=== PATIENT | female | born 1995 | race Caucasian/White ===

== ENCOUNTER 2018-10-29 21:42 | Inpatient (IN) | payer BC ==
[~2018-10-29] VITALS: Ht 180.3 cm; Wt 77.1 kg
[2018-10-29 21:50] VITALS: BP 144/86
[2018-10-29 22:34] LABS: URINE BILIRUBIN NEGATIVE (Negative); URINE BLOOD 1+ (Negative); URINE CLARITY CLEAR; URINE COLOR YELLOW; URINE GLUCOSE-RANDOM* NEGATIVE (Negative); URINE KETONES 1+ (Negative); URINE LEUKOCYTES-REFLEX NEGATIVE (Negative); URINE NITRITE-REFLEX NEGATIVE (Negative); URINE PROTEIN (DIPSTICK) NEGATIVE (Negative); URINE UROBILINOGEN 0.2 E.U./dl (0.2-1.0)
[2018-10-29 22:35] LABS: ABSOLUTE NEUTROPHILS 6.8 thou/uL (1.4-8.2); EOSINOPHILS 2.4 % (0.0-3.0); HEMATOCRIT 38.1 % (37.0-47.0); LYMPHOCYTES 28.2 % (24.0-44.0); MCHC 34.2 g/dL (28.0-37.0); MCV 84.7 fL (80.0-100.0); MONOCYTES 8.9 % (1.0-8.0); PLATELET COUNT 302 thou/uL (150-400); POLYS 59.5 % (36.0-66.0); RDW 12.7 % (10.5-14.5); WBC 11.4 thou/uL (4.0-11.0)
[2018-10-29 22:46] LABS: CALCIUM 8.8 mg/dL (8.5-10.1); CREATININE 0.6 mg/dL (0.6-1.0); POTASSIUM 3.4 mmol/L (3.5-5.1)
[2018-10-29 22:46] LABS: BACTERIA-REFLEX None Seen /HPF (None Seen); CASTS None Seen /LPF (None Seen); CRYSTALS None Seen /LPF (None Seen); MUCUS None Seen strn/LPF (None Seen); SQUAMOUS None Seen /LPF (0-3); URINE RBC None Seen /HPF (0-2); URINE WBC-REFLEX None Seen /HPF (0-5)
[2018-10-30] VITALS (8 sets, daily range): BP systolic 119–137; BP diastolic 78–90
[2018-10-30] MEDS ORDERED: NF (02:11)
--- NOTE | 2018-10-30 04:22 | NUR ---
Pt arrived on unit at 0240 accompanied by fam/friends on a cart. A/OX4,oriented to the room and call light system.VSS. C/o mid abd pain especially with movement,medicated prior to unit arrival and the pain is bearable at 5/10. Up and oksana,educated on fall safety and agreeable to call for help as needed. IVF infusing via Right hand without any problems. Pt remains NPO for possible surgery today.Resting quietly at this time with no distress noted,call light/personal items within reach.
--- NOTE | 2018-10-30 16:02 | NUR ---
PT A&OX4, VSS, PAIN IN ABDOMEN. PAIN MANAGED WITH MORPHINE. PT HAD APPENDECTOMY TODAY. POST VITALS TAKEN, NO SIGNS OF DISTRESS. FAMILY AT BEDSIDE. PT TOLERATING CLEAR LIQUID AT THIS TIME, DENIES N/V/D. PT UP TO BATHROOM STAND
[2018-10-31 03:38] VITALS: BP 110/71
--- NOTE | 2018-10-31 03:40 | NUR ---
PT HAVING LEFT SHOULDER PAIN FROM GAS, ENC. TO GET UP AND AMBULATE, VERBALIZING PASSING GAS, STARTED ON NORCO TONIGHT, FAMILY STAYED ALL NIGHT, SCOPALAMINE PATCH BEHIND RIGHT EAR INTACT, NO NAUSEA NOTED, LAP SITES WELL APPROXIMATED, PT IS UP ADLIB, GAIT STEADY, MONITORED.
[2018-10-31 07:32] VITALS: BP 118/77
[2018-10-31 11:21] VITALS: BP 118/77
--- NOTE | 2018-10-31 12:47 | NUR ---
PT DISCHARGED HOME WITH FAMILY. PT A&OX4, VSS/NO DISTRESS, PAIN IN ABDOMEN MANAGED WITH PAIN MEDICATION. PT ABLE TO AMBULATE TO BATHROOM AND HAS TOLERATED DIET WELL. PT SENT HOME WITH PRESCRIPTIONS AND DISCHARGE PAPERWORK. UNDERSTANDING OF DISCHARGE INSTRUCTIONS VERBALIZED. 3 LAP SITES SECURED WITH DERMABOND, C/D/I. IV HAS BEEN REMOVED.
--- NOTE | 2018-10-31 16:06 | PATH ---
[facility] [address] [place] [address] PATHOLOGY RPT PROCEDURE Name: MATILDE DSOUZA Room #: 458-P DIS IN M.R.#: [id number] ������������������ Admission: 10/30/18 ������������������ Date of : 89 Discharge: 10/31/18 Report #: [id number] Path Case #: [id number] [facility] Accession Number: [id number] . 01 Material submitted: . appendix - APPENDIX . 01 Clinical history: . Appendicitis . 02 Diagnosis: Appendix, "appendix, appendectomy": - Acute suppurative appendicitis. (SHA:alysia; 10/31/2018) MBR/10/31/2018 . 02 Electronically signed: . Garth Rdz MD, Pathologist NPI- [id number] . 01 Gross description: . Received in formalin, labeled "Matilde Dsouza, appendix ", is an intact appendix (6.0 cm length x 0.7 cm diameter) and attached mesoappendix (5.2 x 0.7 x 0.3 cm). The proximal resection margin is closed by a linear staple line, 1.5 cm with an average 0.2 cm width. The staple line and the adjacent serosa is inked black. The serosa is george-pink with congested vessels and no perforation. The lumen is not dilated and filled with hemorrhagic material and no discrete fecalith. The wall has an average thickness of 0.2 cm. The chelsea-appendiceal soft tissue has a yellow cut surface. The specimen is entirely submitted as follows: A1. Proximal to mid. A2. Distal tip, bisected. (SWS; 10/30/2018) SHS/SHS . 02 Pathologist provided ICD-10: K35.80 . 02 CPT . 896206 Specimen Comment: A courtesy copy of this report has been sent to Specimen Comment: [phone], , . Specimen Comment: Report sent to ,DR VALLADARES / DR CRISTOBAL Performed at: [address] [facility], [place] [id number] MD Tom Oneil MD Phone: [phone] [address] [address] PATHOLOGY RPT PROCEDURE Name: MATILDE DSOUZA Room #: 458-P DIS IN M.R.#: [id number] ������������������ Admission: 10/30/18 ������������������ Date of : [birth year] Discharge: 10/31/18 Report #: [id number] Path Case #: [id number] Performed at: [address] [id number] MD Silvia Wiseman MD Phone: [phone]
--- NOTE | 2018-11-07 12:40 | O ---
[facility] [place] [address] OPERATIVE REPORT Name: MARISEL VEGA Room #: 458-P [facility] IN M.R.#: [id number] Admission: 10/30/18 ������������������ Attend Phys: Ankit Sanchez MD Discharge: 10/31/18 ������������������ Date of : [birth year] Report #: [id number] THIS REPORT FOR: //name// CC: Jean Pierre Sanchez DATE OF SERVICE: 10/30/2018 PREOPERATIVE DIAGNOSIS: Acute appendicitis. POSTOPERATIVE DIAGNOSIS: Acute appendicitis. PROCEDURE: Laparoscopic appendectomy. SURGEON: Eduardo Malin M.D. ANESTHESIA: General. ESTIMATED BLOOD LOSS: Minimal. SPECIMENS: Appendix. DESCRIPTION OF PROCEDURE: After informed consent was obtained, the patient was brought to the operating room and placed supine. SCDs were placed and working, preoperative antibiotics were administered and general anesthesia was induced. The abdomen was prepped and draped in the usual sterile fashion. A 10-mm incision was made below the umbilicus. Fascia was incised and a trocar was placed. Pneumoperitoneum was established. A right upper quadrant and left lower quadrant 5-mm port was placed. The appendix was identified. It was grasped and retracted anteriorly. It was slightly inflamed. A window was made in the mesoappendix. The mesoappendix was ligated with BOYD white load stapler. The appendix was then ligated using the BOYD blue load stapler. Appendix was removed through an Endopouch. The fascia was closed with a [id number] 0 Vicryl. Skin was closed with 4-0 Monocryl. Incisions were sealed with Dermabond. COMPLICATIONS: None. DISPOSITION: The patient was taken to recovery in satisfactory condition. ��������������������������������������������� <ELECTRONICALLY SIGNED> ���������������������������������������� By: Eduardo Malin MD ��������������������������������������������� 11/07/18 1240 [id number] Eduardo Malin MD /nt
== END 2018-10-31 12:45 | disposition home or self-care (01) | DRG 343 ==
LOC: ER 21:42 → 4W 10-30 01:42 → EROBS 10-30 01:42 → 4W 10-30 02:52 → ENTRNSPT 10-31 12:06 → EDTRNSPTSTS 10-31 12:08 → 4W 10-31 12:45
PROVIDERS: Emergency Medicine; ADMIT Surgery
PROC: 0DTJ4ZZ Resection of Appendix, Percutaneous Endoscopic Approach (ICD-10-PCS; principal; 2018-10-30)
DX: K35.80 Unspecified acute appendicitis (principal)
CPT/HCPCS: 10040; 50010; 50101; 50411; 50555; 50739; 50740; 52265; 52266; 53307; 53312; 53314; 54118; 56525; 56526; 62110; 62900; 70005